=== PATIENT | male | born 1955 | race Caucasian/White ===

== ENCOUNTER 2019-11-03 13:39 | Emergency (ER) | payer BC ==
[2019-11-03] MEDS ORDERED: ONDANSETRON 4 MG/2 ML VIAL ONE (14:02)
[2019-11-03] MEDS ORDERED: MORPHINE 2 MG/ML SYR ONE ×2 (14:02→15:05)
[2019-11-03 14:12] LABS: Absolute Lymphocytes (CBC) 1.3 K/uL (0.7-4.9); Basophils % 0.5 % (0-1.3); Hematocrit 42.6 % (39.6-49.0); Lymphocytes % 21.8 % (15.3-44.8); MPV 7.6 fL (7.6-11.3); RBC Red Blood Cell Count 4.81 M/uL (4.33-5.43)
[2019-11-03 14:19] LABS: Bilirubin Direct 0.1 mg/dL (0-0.2); Bilirubin Total 0.5 mg/dL (0.2-1.0); Potassium 4.4 mmol/L (3.5-5.1); Protein, Total 7.7 g/dL (6.4-8.2)
--- NOTE | 2019-11-03 15:02 | RAD REPORT ---
EXAM DESCRIPTION: CT - Head C Spine Cap Sanchez Frazier - 11/03/2019 2:37 pm CLINICAL HISTORY: Head and neck injury with chest and abdominal pain status post fall. Head and neck pain . TECHNIQUE: Computed axial tomography of the head and cervical spine was obtained Computed axial tomography of the chest, abdomen and pelvis was obtained. 100 cc Isovue-300 was given intravenously coronal and sagittal reconstruction was performed. All CT scans are performed using dose optimization technique as appropriate and may include automated exposure control or mA/KV adjustment according to patient size. COMPARISON: CT abdomen 2014. FINDINGS: An intracranial bleed is not seen. The ventricles are normal in caliber. An extra-axial fl uid collection is not noted. A cervical fracture is not seen. No dislocation is seen. A nondisplaced fracture right posterior eighth rib. Nondisplaced fracture right posterior ninth rib. Moderately displaced fracture right posterior-latera l ninth rib Mildly to moderately displaced fracture right posterior tenth rib No pneumothorax. Minimal right pleural effusion A mediastinal hematoma is not noted. A lung contusion is not seen. Fatty liver. 32 millimeter left renal cyst. The spleen, pancreas, adrenals and right kidney are unremarkable. Bladder appears grossly normal. Normal appendix IMPRESSION: 1. No acute intracranial abnormality is seen 2. A cervical fracture is not visualized. If the patient continues have symptoms to suggest intracran ial/spinal cord pathology then MRI would be recommended. 3. Fractures involving the right eighth, ninth and tenth ribs.
--- NOTE | 2019-11-03 15:25 | ER ---
Nurse's Notes [facility] Name: Bishop Plaza Age: 64 yrs Sex: Male : 1955 Arrival Date: 11/03/2019 Time: 13:41 Bed 18 Private MD: Diagnosis: Fall due to bumping against object;Multiple fractures of ribs, right side-8, 9 and 10th Presentation: 11/02 13:47 Chief complaint: Patient states: Fell approx. 4 feet off ladder. Landed on [employer] ll1 across back. No head injury or LOC. IV fentanyl given en route 100mcg. IV 20G RFA. NS 200 ml bolus given. Coronavirus screen: Patient denies a cough. Patient denies shortness of breath or difficulty breathing. Patient denies measured and/or subjective temperature greater than 100.4F prior to today's visit. Patient denies travel on a cruise ship or to a country the [facility] currently lists as an affected area. Patient denies contact with known and/or suspected case of COVID-19. Proceed with normal triage. Ebola Screen: Patient denies travel to an Ebola-affected area in the 21 days before illness onset. Initial Sepsis Screen: Does the patient meet any 2 criteria? No. Patient's initial sepsis screen is negative. Risk Assessment: Do you want to hurt yourself or someone else? Patient reports no desire to harm self or others. Onset of symptoms was November 03, 2019. 13:47 Method Of Arrival: EMS ll1 13:47 Acuity: SIMRAN 3 ll1 13:50 Initial Sepsis Screen: Does the patient have a suspected source of infection? No. ll1 Patient's initial sepsis screen is negative. Historical: - Allergies: 13:49 No Known Allergies; ll1 - PMHx: 13:49 Hypertension; Hypothyroidism; ll1 - PSHx: 13:49 Hernia repair; bilateral knee; ll1 - Immunization history:: Adult Immunizations up to date. - Social history:: Smoking status: Patient denies any tobacco usage or history of. Patient/guardian denies using alcohol, street drugs, tobacco products. - Family history:: not pertinent. Screenin:50 Abuse screen: Denies threats or abuse. Nutritional screening: No deficits noted. ll1 Tuberculosis screening: No symptoms or risk factors identified. Fall Risk Fall in past 12 months (25 points). IV access (20 points). Total Alexandre Fall Scale indicates High Risk Score (45 or more points). Fall prevention measures have been instituted. Side Rails Up X 2 Frequent Obs/Assessments Occuring As available patient and family educated on Fall Prevention Program and Strategies. Assessment: 14:00 General: Appears uncomfortable, Behavior is calm, cooperative. Pain: Complains of pain ll1 in right mid back Pain currently is 6 out of 10 on a pain scale. Neuro: No deficits noted. Cardiovascular: No deficits noted. Respiratory: Airway is patent Trachea midline Respiratory effort is even, unlabored, Respiratory pattern is regular, symmetrical, Breath sounds are clear Denies shortness of breath. Musculoskeletal: Circulation, motion, and sensation intact. Capillary refill < 3 seconds, Tenderness present in right mid back Reports pain in right mid back. Injury Description: FALL. 15:00 Reassessment: Patient appears in no apparent distress at this time. No changes from ll1 previously documented assessment. Patient and/or family updated on plan of care and expected duration. Pain level reassessed. Patient is alert, oriented x 3, equal unlabored respirations, skin warm/dry/pink. 16:00 Reassessment: Patient appears in no apparent distress at this time. No changes from ll1 previously documented assessment. Patient and/or family updated on plan of care and expected duration. Pain level reassessed. Patient is alert, oriented x 3, equal unlabored respirations, skin warm/dry/pink. Vital Signs: 13:47 BP 125 / 75; Pulse 61; Resp 18; Temp 98.0; Pulse Ox 99% ; Pain 3/10; ll1 14:00 BP 121 / 61; Pulse 59; Resp 17; Pulse Ox 99% ; ll1 15:00 BP 125 / 70; Pulse 58; Resp 18; Pulse Ox 99% ; ll1 16:28 BP 128 / 83; Pulse 60; Resp 18; Pulse Ox 99% ; ll1 ED Course: 13:41 Patient arrived in ED. marisela 13:41 Jg Gonzalez MD is Attending Physician. marisela 13:41 Patient maintains SpO2 saturation greater than 95% on room air. jp3 13:41 Removal of Cervical Collar. jp3 13:41 Bed in low position. Call light in reach. Side rails up X 1. Side rails up X2. Warm jp3 blanket given. Verbal reassurance given. Pulse ox on. NIBP on. 13:46 Devyn Zabala, RN is Primary Nurse. ll1 13:48 Triage completed. ll1 13:49 Maintain EMS IV. Dressing intact. Good blood return noted. Site clean \T\ dry. Gauge \T\ ll 1 site: 20 R FA. 13:49 Arm band placed on. ll1 13:57 Initial lab(s) drawn, by me, sent to lab. Changed dressing on right forearm Converted jp3 IV to saline lock on right forearm. 14:35 CT completed. Patient tolerated procedure well. Patient moved back from CT. bq 14:37 CT Traumagram (Head C Spine CAP W Con) In Process Unspecified. EDMS 15:23 Jose Virk MD is Referral Physician. marisela 15:30 INCENTIVE SPIROMETRY Sent. ll1 15:45 Chest Single View XRAY In Process Unspecified. EDMS 16:32 No provider procedures requiring assistance completed. IV discontinued, intact, ll1 bleeding controlled, No redness/swelling at site. Pressure dressing applied. Administered Medications: 13:51 Drug: NS 0.9% 1000 ml Route: IV; Rate: 1 bolus; Site: right forearm; ll1 15:03 Follow up: Response: No adverse reaction; RASS: Alert and Calm (0); IV Status: ll1 Completed infusion; IV Intake: 1000ml 13:59 Drug: morphine 2 mg Route: IVP; Site: right forearm; ll1 13:59 Drug: Zofran (Ondansetron) 4 mg Route: IVP; Site: right forearm; ll1 15:03 Follow up: Response: No adverse reaction ll1 15:03 Drug: morphine 2 mg Route: IVP; Site: right forearm; ll1 15:04 Follow up: Response: No adverse reaction; Pain is decreased; RASS: Alert and Calm (0) ll1 16:32 Follow up: Response: No adverse reaction; RASS: Alert and Calm (0) ll1 15:30 Drug: [place] 10 mg-325 mg 1 tabs Route: PO; ll1 16:32 Follow up: Response: No adverse reaction; Pain is decreased; RASS: Alert and Calm (0) ll1 Intake: 15:03 IV: 1000ml; Total: 1000ml. ll1 Outcome: 15:24 Discharge ordered by . marisela 16:32 Discharged to home ambulatory. ll1 16:32 Condition: stable 16:32 Discharge instructions given to patient, Instructed on discharge instructions, follow up and referral plans. no drinking with medication, no driving heavy equipment, medication usage, I.S. Demonstrated understanding of instructions, follow-up care, medications, Prescriptions given X 3. 16:33 Patient left the ED. ll1 Signatures: Dispatcher [employer] EDLA Jg Gonzalez MD MD cha Quilty, Betty bq Pisarski, Jacob 3 Devyn Zabala RN RN ll1
[2019-11-03] MEDS ORDERED: HYDROCODONE/APAP 10/325 TAB ONE (15:34)
--- NOTE | 2019-11-03 16:02 | RAD REPORT ---
EXAM DESCRIPTION: [place] Single View11/03/2019 3:45 pm CLINICAL HISTORY: Chest pain COMPARISON: 2013 FINDINGS: The lungs appear clear of acute infiltrate. The heart is normal size The patient's known right rib fractures are not clearly seen on this exam
--- NOTE | 2019-11-03 16:34 | EDPHYS ---
Physician Documentation [facility] Name: Bishop Plaza Age: 64 yrs Sex: Male : 1955 Arrival Date: 11/03/2019 Time: 13:41 Bed 18 Private MD: ED Physician Jg Gonzalez HPI: 11/02 13:45 This 64 yrs old Male presents to ER via Unassigned with complaints of fall marisela from ladder hit right posterior back. 13:46 This 64 yrs old Male presents to ER via Unassigned with complaints of fall marisela from ladder to right thorax, posterior. 13:46 The patient presents with pain that is acute, and decreased range of motion, and an marisela injury. The symptoms are located in the right subscapular area. Onset: The symptoms/episode began/occurred just prior to arrival. The pain does not radiate. Associated signs and symptoms: Pertinent positives: nausea, sob. The problem was sustained during a fall, ladder. Modifying factors: The patient symptoms are alleviated by remaining still, rest, the patient symptoms are aggravated by bending, coughing, lifting, movement, standing, supine position, walking. Details of fall: The patient fell from a height, from a ladder, approximately 5 feet. Onset: The symptoms/episode began/occurred just prior to arrival. Severity of symptoms: At their worst the symptoms were moderate, in the emergency department the symptoms are unchanged. Historical: - Allergies: 13:49 No Known Allergies; ll1 - PMHx: 13:49 Hypertension; Hypothyroidism; ll1 - PSHx: 13:49 Hernia repair; bilateral knee; ll1 - Immunization history:: Adult Immunizations up to date. - Social history:: Smoking status: Patient denies any tobacco usage or history of. Patient/guardian denies using alcohol, street drugs, tobacco products. - Family history:: not pertinent. ROS: 13:48 Constitutional: Negative for fever, chills, and weight loss, Eyes: Negative for injury, marisela pain, redness, and discharge, ENT: Negative for injury, pain, and discharge, Neck: Negative for injury, pain, and swelling, Cardiovascular: Negative for chest pain, palpitations, and edema, : Negative for injury, bleeding, discharge, and swelling, MS/Extremity: Negative for injury and deformity, Skin: Negative for injury, rash, and discoloration, Neuro: Negative for headache, weakness, numbness, tingling, and seizure, Psych: Negative for depression, anxiety, suicide ideation, homicidal ideation, and hallucinations, Allergy/Immunology: Negative for hives, rash, and allergies, Endocrine: Negative for neck swelling, polydipsia, polyuria, polyphagia, and marked weight changes, Hematologic/Lymphatic: Negative for swollen nodes, abnormal bleeding, and unusual bruising. 13:48 Respiratory: Positive for cough, shortness of breath. 13:48 Abdomen/GI: Positive for nausea. 13:48 Back: Positive for decreased range of motion, pain at rest, pain with movement, of the right subscapular area and right mid back. Exam: 13:48 Constitutional: This is a well developed, well nourished patient who is awake, alert, marisela and in no acute distress. Head/Face: Normocephalic, atraumatic. Eyes: Pupils equal round and reactive to light, extra-ocular motions intact. Lids and lashes normal. Conjunctiva and sclera are non-icteric and not injected. Cornea within normal limits. Periorbital areas with no swelling, redness, or edema. ENT: Nares patent. No nasal discharge, no septal abnormalities noted. Tympanic membranes are normal and external auditory canals are clear. Oropharynx with no redness, swelling, or masses, exudates, or evidence of obstruction, uvula midline. Mucous membranes moist. Neck: Trachea midline, no thyromegaly or masses palpated, and no cervical lymphadenopathy. Supple, full range of motion without nuchal rigidity, or vertebral point tenderness. No Meningismus. Chest/axilla: Normal chest wall appearance and motion. Nontender with no deformity. No lesions are appreciated. Cardiovascular: Regular rate and rhythm with a normal S1 and S2. No gallops, murmurs, or rubs. Normal PMI, no JVD. No pulse deficits. Male : Normal genitalia with no discharge or lesions. Skin: Warm, dry with normal turgor. Normal color with no rashes, no lesions, and no evidence of cellulitis. MS/ Extremity: Pulses equal, no cyanosis. Neurovascular intact. Full, normal range of motion. Neuro: Awake and alert, GCS 15, oriented to person, place, time, and situation. Cranial nerves II-XII grossly intact. Motor strength 5/5 in all extremities. Sensory grossly intact. Cerebellar exam normal. Normal gait. Psych: Awake, alert, with orientation to person, place and time. Behavior, mood, and affect are within normal limits. 13:48 Respiratory: the patient does not display signs of respiratory distress, Respirations: normal, no acute changes, Breath sounds: are clear throughout, bronchial sounds, rhonchi, stridor, + upper airway congestion. wheezing: inspiratory expiratory Respiratory rate: 18 Vital Signs: 13:47 BP 125 / 75; Pulse 61; Resp 18; Temp 98.0; Pulse Ox 99% ; Pain 3/10; ll1 14:00 BP 121 / 61; Pulse 59; Resp 17; Pulse Ox 99% ; ll1 15:00 BP 125 / 70; Pulse 58; Resp 18; Pulse Ox 99% ; ll1 16:28 BP 128 / 83; Pulse 60; Resp 18; Pulse Ox 99% ; ll1 MDM: 13:43 Patient medically screened. marisela 13:50 Differential diagnosis: Fracture sprain, vertebral fracture. Differential diagnosis: marisela closed head injury, fracture, laceration, multiple trauma, sprain, strain. Data reviewed: vital signs, nurses notes, lab test result(s), EKG, radiologic studies, CT scan, plain films. Data interpreted: supervisor marble: rate is 61 beats/min, rhythm is regular, Pulse oximetry: on. Test interpretation: by ED physician or midlevel provider: ECG, plain radiologic studies. Counseling: I had a detailed discussion with the patient and/or guardian regarding: the historical points, exam findings, and any diagnostic results supporting the discharge/admit diagnosis, lab results, radiology results. 15:21 Medication response: Zofran markedly relieved the patient's nausea. Response to marisela treatment: the patient's symptoms have markedly improved after treatment. ED course: rib 8, 9 and 10 rib fractures on the right. 11/02 13:42 Order name: Basic Metabolic Panel [facility] 11/02 13:42 Order name: CBC with Diff [facility] 11/02 13:42 Order name: Type And Screen; Complete Time: 15:20 marisela 11/02 13:42 Order name: LFT's marisela 11/02 13:42 Order name: Lipase [facility] 11/02 13:43 Order name: Basic Metabolic Panel; Complete Time: 15:20 EDMS 11/02 13:42 Order name: CT Traumagram (Head C Spine CAP W Con); Complete Time: 15:20 [facility] 11/02 13:43 Order name: CBC with Automated Diff; Complete Time: 15:20 [facility] 11/02 13:43 Order name: Liver (Hepatic) Function; Complete Time: 15:20 [facility] 11/02 13:43 Order name: Lipase; Complete Time: 15:20 [facility] 11/02 13:52 Order name: INCENTIVE SPIROMETRY [facility] 11/02 14:05 Order name: Chest Single View XRAY [facility] 11/02 13:42 Order name: Labs collected and sent; Complete Time: 13:52 [facility] 11/02 13:42 Order name: Urine Dipstick-Ancillary (obtain specimen); Complete Time: 16:32 [facility] Administered Medications: 13:51 Drug: NS 0.9% 1000 ml Route: IV; Rate: 1 bolus; Site: right forearm; ll1 15:03 Follow up: Response: No adverse reaction; RASS: Alert and Calm (0); IV Status: ll1 Completed infusion; IV Intake: 1000ml 13:59 Drug: morphine 2 mg Route: IVP; Site: right forearm; ll1 13:59 Drug: Zofran (Ondansetron) 4 mg Route: IVP; Site: right forearm; ll1 15:03 Follow up: Response: No adverse reaction ll1 15:03 Drug: morphine 2 mg Route: IVP; Site: right forearm; ll1 15:04 Follow up: Response: No adverse reaction; Pain is decreased; RASS: Alert and Calm (0) ll1 16:32 Follow up: Response: No adverse reaction; RASS: Alert and Calm (0) ll1 15:30 Drug: [place] 10 mg-325 mg 1 tabs Route: PO; ll1 16:32 Follow up: Response: No adverse reaction; Pain is decreased; RASS: Alert and Calm (0) ll1 Disposition: 11/03/19 15:24 Discharged to Home. Impression: Fall due to bumping against object, Multiple fractures of ribs, right side - 8, 9 and 10th. - Condition is Stable. - Discharge Instructions: Rib Fracture, Fall Prevention in the Home, [id number], Rib Fracture, [id number]. - Prescriptions for Tylenol- Codeine #3 300-30 mg Oral Tablet - take 2 tablet by ORAL route every 6 hours As needed; 30 tablet. Valium 5 mg Oral Tablet - take 1 tablet by ORAL route every 8 hours As needed; 20 tablet. Motrin IB 200 mg Oral Tablet - take 2 tablet by ORAL route every 6 hours As needed as needed with food; 26 tablet. - Medication Reconciliation Form, Thank You Letter, Antibiotic Education, Prescription Opioid Use form. - Follow up: Private Physician; When: 1 - 2 days; Reason: Recheck today's complaints, Continuance of care, Re-evaluation by your physician. Follow up: Jose Virk MD; When: 2 - 3 days; Reason: Recheck today's complaints, Continuance of care, Re-evaluation by your physician. - Problem is new. - Symptoms have improved. Signatures: Dispatcher [employer] [facility] Jg Gonzalez MD MD cha Lewis, Lynsay, RN RN ll1 Corrections: (The following items were deleted from the chart) 13:46 13:43 C Spine Single View+RAD.RAD.BRZ ordered. [facility] 16:33 15:24 11/03/2019 15:24 Discharged to Home. Impression: Fall due to bumping against ll1 object; Multiple fractures of ribs, right side - 8, 9 and 10th. Condition is Stable. Forms are Medication Reconciliation Form, Thank You Letter, Antibiotic Education, Prescription Opioid Use. Follow up: Private Physician; When: 1 - 2 days; Reason: Recheck today's complaints, Continuance of care, Re-evaluation by your physician. Follow up: Jose Virk; When: 2 - 3 days; Reason: Recheck today's complaints, Continuance of care, Re-evaluation by your physician. Problem is new. Symptoms have improved. marisela
[2019-11-03 18:41] VITALS: O2SAT 99
[2019-11-03 18:43] VITALS: TEMP 98
[2019-11-03 18:46] VITALS: BP 128/83
== END 2019-11-03 16:33 | disposition home or self-care (01) ==
LOC: ER 13:39
DX: S22.41XA Multiple fractures of ribs, right side, initial encounter for closed fracture (principal); W11.XXXA Fall on and from ladder, initial encounter; I10 Essential (primary) hypertension
CPT/HCPCS: 96361; 85025; 80048; 36415; 86900; 86850; 86901; 80076; 83690; 70450; 72125; 71260; 74177; 71045; 96375; 96374; 99285; Q9967; J2270 ×2; J2405

== ENCOUNTER 2023-01-31 09:28 | Day surgery (SDC) | payer OTHER ==
[2023-01-31] MEDS ORDERED: LIDOCAINE 2% MPF 5 ML VIAL ONE (10:01)
[2023-01-31] MEDS ORDERED: FENTANYL CITR 100 MCG/2 ML ONE (10:01)
[2023-01-31] MEDS ORDERED: propofoL 200 MG/20 ML VIAL IV ONE (10:01)
[2023-01-31] MEDS ORDERED: SUGAMMADEX SODIUM 200 MG/2 ML VIAL IV ONE (10:03)
[2023-01-31] MEDS ORDERED: CEFAZOLIN SODIUM 1 GM/VIAL ONE (10:09)
[2023-01-31] MEDS ORDERED: Ringers Lactate 1,000 ML IV ONE (10:09)
[2023-01-31 10:57] LABS: Absolute Lymphocytes (CBC) 1.8 K/uL (0.7-4.9); Hematocrit 41.3 % (39.6-49.0); MCV 88.5 fL (80-100); MPV 7.6 fL (7.6-11.3); Platelets 129 thou/uL (152-406); RBC Red Blood Cell Count 4.67 M/uL (4.33-5.43)
--- NOTE | 2023-01-31 11:06 | RAD REPORT ---
EXAM DESCRIPTION: RAD - Chest Pa And Lat (2 Views) - 01/31/2023 10:33 am CLINICAL HISTORY: PREOP. Hypertension COMPARISON: Chest Single View dated 11/03/2019; CHEST PA AND LAT 2 VIEW dated 05/25/2013; CHEST PA AND LAT 2 VIEW dated 09/06/2011 TECHNIQUE: PA and lateral views of the chest were obtained. FINDINGS: The lungs are clear. Heart size is normal and central vasculature is within normal limits. No pleural effusion or pneumothorax seen. No acute bony finding noted. IMPRESSION: No acute cardiopulmonary process.
[2023-01-31 11:18] LABS: Potassium 4.2 mEq/L (3.5-5.1)
[2023-01-31] MEDS ORDERED: BUPIVACAINE 0.5% PF 10 ML VIAL ONE (11:20)
[2023-01-31] MEDS ORDERED: ONDANSETRON 4 MG/2 ML VIAL ONE (11:34)
[2023-01-31] MEDS ORDERED: dexAMETHasone 4 MG/ML VIAL ONE (11:34)
--- NOTE | 2023-01-31 11:38 | P.BOP ---
Preoperative diagnosis: infected back SubQ mass with abscess Postoperative diagnosis: same Primary procedure: Excisonal biopsy of infected back SubQ mass with abscess drainage 5x5cm Estimated blood loss: <10cc Specimen: mass and pus culture Findings: as above Anesthesia: General Complications: None Drain(s): Other (wet to dry NS) Transferred to: Recovery Room Condition: Good
[2023-01-31] MEDS ORDERED: GLYCOPYRROLATE 0.2 MG/ML SYR ONE (11:39)
[2023-01-31 13:36] VITALS: TEMP 97; O2SAT 99
[2023-01-31 13:37] VITALS: BP 112/64
--- NOTE | 2023-01-31 17:02 | EKG ---
Test Date: 2023-01-31 Test Time: 09:48:16 [employer] Project Manager: JEANA MEASUREMENT RESULTS: Intervals: Rate: 52 ID: [id number] QRSD: 82 QT: 408 QTc: 379 [place]: P: 43 ID: [id number] QRS: 37 T: 39 INTERPRETIVE STATEMENTS: Sinus bradycardia Otherwise normal ECG Compared to ECG 12/23/2000 15:41:00 Sinus rhythm no longer present Electronically Signed On 01-31-23 17:01:09 CDT by Louie Charles
== END 2023-01-31 12:44 | disposition home or self-care (01) ==
LOC: OR 09:28
PROVIDERS: ATTEND Surgery
PROC: 0JB70ZZ Excision of Back Subcutaneous Tissue and Fascia, Open Approach (ICD-10-PCS; principal; 2023-01-31 11:00)
DX: L72.0 Epidermal cyst (principal); L02.212 Cutaneous abscess of back [any part, except buttock and flank]; L08.9 Local infection of the skin and subcutaneous tissue, unspecified; R22.2 Localized swelling, mass and lump, trunk; I10 Essential (primary) hypertension; E03.9 Hypothyroidism, unspecified
CPT/HCPCS: 36415; 71046; 80048; 85025; 87070; 87075; 87205; 88304; 93005; J0690; J1100; J2001; J2405; J2704; J3010; J7120